=== PATIENT | female | born 1995 | race Caucasian/White ===

== ENCOUNTER → 2018-08-24 15:02 | Outpatient (CLI) | payer BC, SELFPAY ==
[2018-08-24 17:31] LABS: Chlamydia Trachomatis by PCR Negative (Negative); Neisserai gonorrhoeae by PCR Negative (Negative); Probe Check PASS; Sample Adequacy Control PASS; Specimen Processing Control PASS
[2018-08-27 13:20] LABS: HPV Reflexed? NOT INDICATED
== END ==
PROVIDERS: Visit Provider Obstetrics & Gynecology
DX: Z11.3 Encounter for screening for infections with a predominantly sexual mode of transmission (principal); Z12.4 Encounter for screening for malignant neoplasm of cervix
CPT/HCPCS: 87491; 87591; 88175; G0145

== ENCOUNTER 2018-09-17 18:02 | Emergency (ER) | payer BC, SELFPAY ==
[2018-09-17 18:04] VITALS: BP 135/82; PULSE 106; RESP 18; TEMP 36.3; O2SAT 98; BMI 23.2
--- NOTE | 2018-09-17 18:24 | ED.VISSUMM ---
- ER Visit Summary Date of Service: 09/17/18 Chief Complaint: Intermittent left lower quadrant abdominal pain with diarrhea History of Present Illness: The patient is a 22 F no see past medical history. Patient states the last 4 months she has had intermittent episodes of diarrhea and some crampy left lower quadrant abdominal pain. She denies melena. She denies fever. She has never had any abdominal or pelvic surgeries. Last menstrual period was 3 weeks ago. She is having no vaginal bleeding or discharge. No dysuria. She saw her BOTANY LABORATORY ASSISTANT recently Dr. Maksim Sultana reportedly according to the patient her UA was negative and her pelvic exam was unremarkable. He thought this may be GI related and she has been referred to and has an appointment to see Dr. Low Ha of GI in the next 2 weeks. Patient denies any weight change. She denies any fever. She denies any trauma. Physical Examination: Very well-appearing 22-year-old female. Vital signs are stable and afebrile. HEENT exam unremarkable. Neck nontender. Lungs clear to auscultation bilaterally. Heart regular rhythm no murmur. Abdomen is soft. Nondistended. Normal bowel sounds and is whatsoever. Where she points the pain is in her low left lower quadrant. She has no hernia or mass. There is no right lower quadrant pain whatsoever. No right upper quadrant pain whatsoever. No splenomegaly or hepatomegaly. No signs of bowel obstruction. And soft. Abdominal exam is very benign. She is moving all 4 extremities. Neurovascularly intact. Skin unremarkable. Back nontender. Neurologic exam normal. Test Results: I discussed with the patient clinically this sounds like this may be irritable bowel with crampy left lower quadrant pain intermittently with diarrhea. She does not need a CAT scan at this time. There is no surgical abdomen. Her OB did not think it was ovarian cyst and the pain is intermittent and not constant. Her last menstrual period was 3 weeks ago and she is having no urinary symptoms. Patient was offered but deferred any testing at this time and I do not honestly think she needs testing at this time. Emergency Department Course and Treatment: Bentyl for pain and cramping. Imodium for diarrhea. Follow-up with her GI doctor Dr. Low Ha. Treatment Plan: Discharge Disposition: Discharge Impression: Intermittent left lower quadrant abdominal pain w/ diarrhea Irritable bowel This note was generated with Dragon dictation software. It may contain incorrect words, spelling, and punctuation that were not noted in review of the chart prior to signing ED Disposition - Plan for ED Patient: Chief Complaint: Abd Pain Referrals: Care Physician,No Primary [Primary Care Provider] -
--- NOTE | 2018-09-17 18:29 | ED.DCSUM_ITS ---
- ER Visit Summary Date of Service: 09/17/18 Chief Complaint: Intermittent left lower quadrant abdominal pain with diarrhea History of Present Illness: The patient is a 22 F no see past medical history. Patient states the last 4 months she has had intermittent episodes of diarrhea and some crampy left lower quadrant abdominal pain. She denies melena. She denies fever. She has never had any abdominal or pelvic surgeries. Last menstrual period was 3 weeks ago. She is having no vaginal bleeding or di scharge. No dysuria. She saw her CARAMEL CUTTER HELPER recently Dr. Maksim Sultana reportedly according to the patient her UA was negative and her pelvic exam was unremarkable. He thought this may be GI related and she has been referred to and has an appointment to see Dr. Low Ha of GI in the next 2 weeks. Patient denies any weight change. She denies any fever. She denies any trauma. Physical Examination: Very well-appearing 22-year-old female. Vital signs are stable and afebrile. HEENT exam unremarkable. Neck nontender. Lungs clear to auscultation bilaterally. Heart regular rhythm no murmur. Abdomen is soft. Nondistended. Normal bowel sounds and is whatsoever. Where she points the pain is in her low left lower quadrant. She has no hernia or mass. There is no r ight lower quadrant pain whatsoever. No right upper quadrant pain whatsoever. No splenomegaly or hepatomegaly. No signs of bowel obstruction. And soft. Abdominal exam is very benign. She is moving all 4 extremities. Neurovascularly intact. Skin unremarkable. Back nontender. Neurologic exam normal. Test Results: I discussed with the patient clinically this sounds like this may be irritable bowel with crampy left lower quadrant pain intermittently with diarrhea. She does not need a CAT scan at this time. There is no surgical abdomen. Her OB did not think it was ovarian cyst and the pain is intermittent and not constant. Her last menstrual period was 3 weeks ago and she is having no urinary symptoms. Patient was offered but deferred any testing at this time and I do not honestly think she needs testing at this time. Emergency Department Course and Treatment: Bentyl for pain and cramping. Imodium for diarrhea. Follow-up with her GI doctor Dr. Low Ha. Treatment Plan: Discharge Disposition: Discharge Impression: Intermittent left lower quadrant abdominal pain w/ diarrhea Irritable bowel This note was generated with Daio dictation software. It may contain incorrect words, spelling, and punctuation that were not noted in review of the chart prior to signing ED Disposition - Plan for ED Patient: Chief Complaint: Abd Pain Referrals: Care Physician,No Primary [Primary Care Provider] -
--- NOTE | 2018-09-17 18:29 | ED.DEP ---
ED Disposition - Plan for ED Patient: Disposition: Home or Assisted Living Chief Complaint: Abd Pain Instructions: ED Abdominal Pain Unkn Cause, ED IBS Prescriptions: Loperamide [Imodium] 2 mg PO Q2H PRN PRN #14 cap PRN Reason: Diarrhea Dicyclomine HCl [Bentyl] 10 mg PO TID PRN PRN #20 cap PRN Reason: Pain Referrals: Care Physician,No Primary [Primary Care Provider] - Additional Instructions: Plenty of fluids and rest. Plenty of fiber. Imodium as needed for diarrhea. Bentyl as needed for abdominal cramping.
[2018-09-17 18:41] VITALS: RESP 18
--- OUTSIDE RECORDS SUMMARY | 2018-11-12 23:35 | XMS RPT_ITS ---
:1995 Author Organization [facility] Care Team Providers Name Role Phone Low Ha Attending Unavailable Low Ha Referring Unavailable Primay Care Physicia, No Primary Care Unavailable Low Ha Attending Unavailable Low Ha Referring Unavailable Primay Care Physicia, No Primary Care Unavailable Maksim Sultana Attending Unavailable Hussain Pérez Attending Unavailable Primay Care Physicia, No Primary Care Unavailable PROBLEMS PROBLEMS DATE TYPE CONDITION / CODE ATTENDING STATUS SOURCE 08/26/2018 Unknown Z11.3 - Encounter Maksim Sultana Active [place] for screening for Community infections with a Hospital predominantly Repository sexual mode of transmission / Z11.3(ICD-10) PROCEDURES PROCEDURES No Procedure Records FoundRESULTS RESULTS SMALL BOWEL SERIES Observed: 10/05/2018 Status: F Source: [place]IR[place] ONLY 8:38 AM [facility] REPOSITORY [facility] Imaging Services [address] [place] [address] Small Bowel Series Only MR#: [id number] Acct: [id number] Name: MARTHA VALDIVIA Rep #: [id number] : 1995 F 22 From: Taye Blanchard MD PCP: Care Physician, No Primary Status: REG CLI Study: Small Bowel Series Only Date of Exam: 10/05/18 Exam# [id number] Ordering Dr: Low Ha MD PROCEDURE: SMALL BOWEL SERIES DATE OF EXAMINATION: October 05, 2018.. INDICATION: Female, 22 years old. Abdominal pain and diarrhea. PHYSICIAN: Taye Blanchard M.D. TECHNIQUE: Radiographic and fluoroscopic images were taken of the small intestine following the ingestion of barium. COMPARISON: None. FINDINGS: A preliminary supine KUB was obtained. There is an unremarkable bowel gas pattern. Fecal material is present throughout the colon. The osseous structures are normal. The patient orally ingested approximately 12 ounces of thin barium Normal visualized fundus, body, and antrum of the stomach. Normal duodenal bulb, C-loop, and proximal jejunum. Normal visualized mucosal folds of the jejunum and ileum. There are no demonstrated dilatations, strictures, or masses of the small intestine. There is no mass displacement of the loops of small intestine. There is a normal motor pattern with barium reaching the colon within approximately 15 minutes. Spot films under fluoroscopic observation demonstrated a normal terminal ileum and ileocecal valve. RAD/Small Bowel Series Only IMPRESSION: Normal small bowel series. Electronically Signed: Taye Blanchard MD at 16:01 EST Tel [phone], Service support , CC: No Primary Care Physician; Low Ha Specification Consultant: Signed CBC-COMPLETE BLOOD CNT Collected: 09/30/2018 Status: F Source: [place] NO DIFF 3:57 PM [facility] REPOSITORY TYPE CODE TESTS RESULT OUT OF RANGE REFERENCE UNITS LAB L100.1000 4.4-11.0 K/mm3 Normal WBC 6.0 LAB L100.1200 4.2-5.4 M/mm3 Normal RBC 4.37 LAB L100.1300 12.0-15.0 g/dl Normal HGB 13.6 LAB L100.1400 37-47 % Normal HCT 40.0 LAB L100.1500 81-99 fL Normal MCV 91.5 LAB L100.1600 27.0-32.0 pg Normal MCH 31.1 LAB L100.1700 32-36 g/gl Normal MCHC 34.0 LAB L100.1810 11.6-14.6 % Normal RDW CV 12.2 LAB L100.1820 35.1-43.9 fl Normal RDW SD 40.0 LAB L100.1900 150-450 K/mm3 Normal PLT 223 LAB L100.2000 6.2-12.0 fl Normal MPV 10.8 Performed By: #### L100.0500, L101.9900 #### [facility] [address] [place], [place], [id number] ERYTHROCYTE SED RATE Collected: 09/30/2018 Status: F Source: VIRGIL 3:57 PM [facility] REPOSITORY TYPE CODE TESTS RESULT OUT OF RANGE REFERENCE UNITS LAB L102.0000 0-20 mm/hr Normal SED RATE 1 Performed By: #### L100.0500, L101.9900 #### [facility] [address] [place], [place], [id number] CRP Collected: 09/30/2018 Status: F Source: VIR[place]IL 3:57 PM [facility] REPOSITORY TYPE CODE TESTS RESULT OUT OF RANGE REFERENCE UNITS LAB L501.6710 0.0-3.0 mg/L Normal < 2.90 C-REACTIVE PROT Result Comment: C-Reactive Protein (CRP) provides useful information for the diagnosis, therapy and monitoring of inflammatory processes and associated diseases. For the evaluation of Relative Risk for Cardiovascular Disease, a High Sensitivity CRP (HSCRP) should be ordered. Performed By: #### L501.6710 #### [facility] [address] [place], [address] CELIAC DISEASE Collected: 09/30/2018 Status: F Source: [place] PROFILE 3:57 PM [facility] REPOSITORY TYPE CODE TESTS RESULT OUT OF RANGE REFERENCE UNITS LAB L3200.1400 87-352 mg/dL Normal IMMUNO A 250 Result Comment: Performed at: - [facility] [id number] Top Precipitator Operator Helper: Low Donato PhD, Phone: [phone] LAB L3911.6097 0-3 U/mL Normal tTG IGA <2 Result Comment: Negative 0 - 3 Weak Positive 4 - 10 Positive >10 Tissue Transglutaminase (tTG) has been identified as the endomysial antigen. Studies have demonstr- ated that endomysial IgA antibodies have over 99% specificity for gluten sensitive enteropathy. LAB L3410.2975 Negative Normal ENDOMYSIAL IGA Negative Performed By: #### L3410.2400 #### [facility] (refer to report for specific site) refer to report for address and phone number EMERGENCY DEPARTMENT Observed: 09/17/2018 Status: F Source: [place] SUMMARY 11:54 PM [facility] REPOSITORY [facility] Medical Records Department [address] [place] [address] Emergency Department Summary 09/17/18 1824 MR#: [id number] Acct: [id number] Name: MARTHA VALDIVIA Rep #: [id number] : 1995 22 From: Hussain Pérez MD PCP: Care Physician, No Primary Status: DEP ER - ER Visit Summary Date of Service: 09/17/18 Chief Complaint: Intermittent left lower quadrant abdominal pain with diarrhea History of Present Illness: The patient is a 22 F no see past medical history. Patient states the last 4 months she has had intermittent episodes of diarrhea and some crampy left lower quadrant abdominal pain. She denies melena. She denies fever. She has never had any abdominal or pelvic surgeries. Last menstrual period was 3 weeks ago. She is having no vaginal bleeding or discharge. No dysuria. She saw her DIRECTOR RELIGIOUS EDUCATION recently Dr. Maksim Sultana reportedly according to the patient her UA was negative and her pelvic exam was unremarkable. He thought this may be GI related and she has been referred to and has an appointment to see Dr. Low Ha of GI in the next 2 weeks. Patient denies any weight change. She denies any fever. She denies any trauma. Physical Examination: Very well-appearing 22-year-old female. Vital signs are stable and afebrile. HEENT exam unremarkable. Neck nontender. Lungs clear to auscultation bilaterally. Heart regular rhythm no murmur. Abdomen is soft. Nondistended. Normal bowel sounds and is whatsoever. Where she points the pain is in her low left lower quadrant. She has no hernia or mass. There is no right lower quadrant pain whatsoever. No right upper quadrant pain whatsoever. No splenomegaly or hepatomegaly. No signs of bowel obstruction. And soft. Abdominal exam is very benign. She is moving all 4 extremities. Neurovascularly intact. Skin unremarkable. Back nontender. Neurologic exam normal. Test Results: I discussed with the patient clinically this sounds like this may be irritable bowel with crampy left lower quadrant pain intermittently with diarrhea. She does not need a CAT scan at this time. There is no surgical abdomen. Her OB did not think it was ovarian cyst and the pain is intermittent and not constant. Her last menstrual period was 3 weeks ago and she is having no urinary symptoms. Patient was offered but deferred any testing at this time and I do not honestly think she needs testing at this time. Emergency Department Course and Treatment: Bentyl for pain and cramping. Imodium for diarrhea. Follow-up with her GI doctor Dr. Low Ha. Treatment Plan: Discharge Disposition: Discharge Impression: Intermittent left lower quadrant abdominal pain w/ diarrhea Irritable bowel This note was generated with Equipboard dictation software. It may contain incorrect words, spelling, and punctuation that were not noted in review of the chart prior to signing ED Disposition - Plan for ED Patient: Chief Complaint: Abd Pain Referrals: Care Physician,No Primary [Primary Care Provider] - What to do if you have Problems For any increased pain, shortness of breath, bleeding, nausea or vomiting, chest pain, or any unexpected problems, contact your Primary Care Provider. Call [facility] ([phone]) or report to the closest Emergency Room. Call 911 if necessary. 09/17/182353 <Electronically signed by Hussain Pérez MD> Date Hussain Pérez MD Cosigner Signature (If Indicated): Date CC: No Primary Care Physician DISCHARGE INSTRUCTION Observed: 09/17/2018 Status: F Source: VIR[place]IL 11:54 PM [facility] REPOSITORY [facility] Medical Records Department [address] [place] [address] Discharge Instruction 09/17/18 1829 MR#: [id number] Acct: [id number] Name: MARTHA VALDIVIA Rep #: [id number] : 1995 22 From: Hussain Pérez MD PCP: Care Physician, No Primary Status: DEP ER ED Disposition - Plan for ED Patient: Disposition: Home or Assisted Living Chief Complaint: Abd Pain Instructions: ED Abdominal Pain Unkn Cause, ED IBS Prescriptions: Loperamide [Imodium] 2 mg PO Q2H PRN PRN #14 cap PRN Reason: Diarrhea Dicyclomine HCl [Bentyl] 10 mg PO TID PRN PRN #20 cap PRN Reason: Pain Referrals: Care Physician,No Primary [Primary Care Provider] - Additional Instructions: Plenty of fluids and rest. Plenty of fiber. Imodium as needed for diarrhea. Bentyl as needed for abdominal cramping. What to do if you have Problems For any increased pain, shortness of breath, bleeding, nausea or vomiting, chest pain, or any unexpected problems, contact your Primary Care Provider. Call [facility] ([phone]) or report to the closest Emergency Room. Call 911 if necessary. 09/17/182353 <Electronically signed by Hussain Pérez MD> Date Hussain Banks Signature (If Indicated): Date CC: No Primary Care Physician CT/NG [facility] BY PCR Collected: 08/24/2018 Status: F Source: [place] 11:30 AM [facility] REPOSITORY TYPE CODE TESTS RESULT OUT OF RANGE REFERENCE UNITS LAB L8200.2100 Negative Normal Chlam Negative Trac PCR LAB L8200.2200 Negative Normal NG by Negative PCR Performed By: #### L8200.2000 #### [facility] [address] [place], [address] PAP I-G W/RFX HRHPV Collected: 08/24/2018 Status: F Source: [place] 11:30 AM [facility] REPOSITORY Order Comment: CYTOLOGY INFORMATION: - CLINICAL INFORMATION: - DATE LMP/MENOPAUSE: 08/08/18 LMP - COLLECTION VIAL: Thin Prep Vial - WEB ANALYTICS DEVELOPER SOURCE: CERVICAL/ENDOCERVICAL - COLLECTION TECHNIQUE: BRUSH/SPATULA Specimen Comment: [id number] Specimen Comment: Source.............Cervix;Endocervix Specimen Comment: LMP / Prev Treat...[id number] Specimen Comment: No. of containers..01 ThinPrep Vial TYPE CODE TESTS RESULT OUT OF RANGE REFERENCE UNITS LAB L7400.0800 . Normal DIAGN Comment Result Comment: NEGATIVE FOR INTRAEPITHELIAL LESION AND MALIGNANCY. LAB L7400.0900 . Normal ADEQ Comment Result Comment: Satisfactory for evaluation. No endocervical component is identified. LAB L7400.1400 . Normal PERFORM Comment Result Comment: [employer] Hybrid Powertrain Development Engineer (ASCP) LAB L7400.2575 . Normal TEST METHOD Comment Result Comment: This liquid based ThinPrep(R) pap test was screened with the use of an image guided system. LAB L7400.2600 . Normal . COMM LAB L7400.2700 . Normal PAPSMR Comment Result Comment: The Pap smear is a screening test designed to aid in the detection of premalignant and malignant conditions of the uterine cervix. It is not a diagnostic procedure and should not be used as the sole means of detecting cervical cancer. Both false-positive and false-negative reports do occur. LAB L7400.2800 . Normal HPV RFLX Comment Result Comment: The HPV DNA reflex criteria were not met with this specimen result therefore, no HPV testing was performed. Performed at: - [facility] [address] [id number] Top Precipitator Operator Helper: Nubia Haque MD, Phone: [phone] Performed By: #### L7400.0350 #### [facility] (refer to report for specific site) refer to report for address and phone number ALLERGIES ALLERGIES DATE TYPE / CODE NAME / CODE REACTION SEVERITY SOURCE 09/17/2018 Drug No Known Unknown [facility] Allergy/4160 Allergies/F00 [facility] [address](SNOMED [id number](RXNOR Repository CT) M) ENCOUNTERS ENCOUNTERS ADMIT/DISCHARGE ACCOUNT ADMITTING ENCOUNTER LOCATION SOURCE NUMBER CLASS 10/05/2018 [id number] Ambulatory Blanchard Blanchard 8 [facility] ing:RAD Repository 09/30/2018 [id number] Ambulatory Blanchard Blanchard 4 [facility] ing:MTLAB Repository 09/17/2018/ [id number] Emergency Virgil Virgil 8 5 [facility] ing:ED Repository 08/24/2018 [id number] Ambulatory Blanchard [place]gil 6 [facility] ing:LABSPEC Repository PAYERS PAYERS ENCOUNTER GUARANTOR PAYER SUBSCRIBER SOURCE 10/05/2018 MARTHA Avery Primary MARTHA K Blanchard [id number] Insurance:ANTHEMPolic CARTERDOB: [facility] Number: [id number] Hospital [id number], [id number] [place]ository [place] [address]Vqc: Date:5355-47-15[address], [place] () [address]: 10/05/2018 Secondary NOT GIVENUNK [place] Insurance:SELF PAY [facility] Number: Effective Repository Date:2018-09-30 09/30/2018 MARTHA Avery Primary MARTHA K Blanchard [id number] Insurance:ANTHEMPolic CARTERDOB: Community ANDREW y [facility]: [id number], [id number] [place]ository [place] [address]Wfh: Date:5289-80-35[address] () [address]AJ: 09/30/2018 Secondary NOT GIVENUNK [place] Insurance:SELF PAY [facility] Number: Effective Repository Date:2018-09-30 09/17/2018 [facility] MARTHA Avery Blanchard [id number] Insurance:ANTHEMPolic CARTERDOB: Community ANDREW y Number: [id number] [address], [id number] [place]ository [place] [address]Kvt: Date:2458-85-21[address]KRKDHCHSH[address]SH[address] () [address]: 09/17/2018 Secondary NOT GIVENUNK Blanchard Insurance:SELF PAY [facility] Number: Effective Repository Date:2018-09-17 08/24/2018 [facility] MARTHA Blanchard [id number] Insurance:ANTHEMPolic CARTERDOB: Community ANDREW y Number: [id number], [id number] [place]ository [place] [address]Nrr: Date:9403-70-40ZF [address]HIZWCQKSHAHAB [place]SH[address] () [address]: 08/24/2018 Secondary NOT GIVENUNK [place] Insurance:SELF PAY [facility] Number: Effective Repository Date:2018-08-24
== END 2018-09-17 18:49 | disposition home or self-care (01) ==
LOC: ED 18:43
PROVIDERS: Emergency Provider Emergency Medicine
DX: K58.0 Irritable bowel syndrome with diarrhea (principal); R10.32 Left lower quadrant pain; Z72.0 Tobacco use
CPT/HCPCS: 99282

== ENCOUNTER → 2018-09-30 15:40 | Outpatient (CLI) | payer BC, SELFPAY ==
[2018-09-17 18:04] VITALS: BMI 23.2
[2018-09-30 17:38] LABS: Hemoglobin 13.6 g/dl (12.0-15.0); Mean Corpuscular Hgb 31.1 pg (27.0-32.0); Mean Corpuscular Volume 91.5 fL (81-99); Mean Platelet Vol. 10.8 fl (6.2-12.0); Platelet Count 223 K/mm3 (150-450); RBC Distribution Width CV 12.2 % (11.6-14.6); Red Blood Count 4.37 M/mm3 (4.2-5.4)
[2018-09-30 17:39] LABS: Scan Indicated on CBC? Y/N NO
[2018-09-30 17:55] LABS: CRP < 2.90 mg/L (0.0-3.0)
[2018-09-30 18:01] LABS: Erythrocyte Sedimentation Rate 1 mm/hr (0-20)
[2018-10-02 16:09] LABS: Endomysial Antibody IgA Negative (Negative)
[2018-10-02 16:22] LABS: Immunoglobulin A 250 mg/dL (87-352); t-Transglutaminase IgA <2 U/mL (0-3)
--- OUTSIDE RECORDS SUMMARY | 2018-11-16 21:08 | XMS RPT_ITS ---
[...] Status: F Source: [place] ONLY 8:38 AM [facility] REPOSITORY [facility] Imaging Services [address] [place] [address] Small Bowel Series Only MR#: [id number] Acct: [id number] Name: MARTHA VALDIVIA Rep #: [id number] : 1995 F 22 From: Taye Blanchard MD PCP: Care Physician, No Primary Status: REG CLI Study: Small Bowel Series Only Date of Exam: 10/05/18 Exam# [id number] Ordering Dr: Low Ha MD PROCEDURE: SMALL [...] Taye Blanchard MD at 16:01 EST Tel [phone], Service support , CC: No Primary Care Physician; Low Ha Car Rental Sales Assistant: Signed CBC-COMPLETE BLOOD CNT Collected: 09/30/2018 Status: F Source: [place] NO DIFF 3:57 PM [facility] [place] TYPE CODE TESTS RESULT OUT OF [...] 10.8 Performed By: #### L100.0500, L101.9900 #### [facility] Laboratory [address] [facility]. [place], [place], [id number] ERYTHROCYTE SED RATE Collected: 09/30/2018 Status: F Source: [place] 3:57 PM [facility] [place] TYPE CODE TESTS RESULT OUT OF RANGE REFERENCE UNITS LAB L102.0000 0-20 mm/hr Normal SED RATE 1 Performed By: #### L100.0500, L101.9900 #### [facility] Laboratory [address] [place], [place], [id number] CRP Collected: 09/30/2018 Status: F Source: [place] 3:57 PM [facility] [place] TYPE CODE TESTS RESULT OUT OF RANGE REFERENCE UNITS LAB L501.6710 0.0-3.0 mg/L Normal < 2.90 C-REACTIVE PROT Result Comment: C-Reactive Protein (CRP) provides useful information for the diagnosis, therapy and monitoring of inflammatory processes and associated diseases. For the evaluation of Relative Risk for Cardiovascular Disease, a High Sensitivity CRP (HSCRP) should be ordered. Performed By: #### L501.6710 #### [facility] Laboratory [address] [place], [address] CELIAC DISEASE Collected: 09/30/2018 Status: F Source: [place] PROFILE 3:57 PM [facility] [place] TYPE CODE TESTS RESULT OUT OF RANGE REFERENCE UNITS LAB L3200.1400 87-352 mg/dL Normal IMMUNO A 250 Result Comment: Performed at: - [facility] [id number] Channel Program Manager: Low Donato PhD, Phone: [phone] LAB L3972.0628 0-3 U/mL Normal tTG IGA <2 Result [...] EMERGENCY DEPARTMENT Observed: 09/17/2018 Status: F Source: [place] SUMMARY 11:54 PM [facility] [place] [facility] Medical Records Department [address] [place] [address] Emergency Department Summary 09/17/18 1824 MR#: [id number] Acct: [id number] Name: MARTHA VALDIVIA Rep #: [id number] : 1995 22 From: Hussain Pérez MD [...] or discharge. No dysuria. She saw her VISCOSITY TESTER recently Dr. Maksim Sultana reportedly according to [...] Irritable bowel This note was generated with [employer] dictation software. It may contain incorrect words, [...] your Primary Care Provider. Call [facility] ([phone]) or report to the closest Emergency Room. Call 911 if necessary. 09/17/182353 <Electronically signed by Hussain Pérez MD> Date Hussain Pérez MD Cosigner Signature (If Indicated): Date CC: No Primary Care Physician DISCHARGE INSTRUCTION Observed: 09/17/2018 Status: F Source: [place] 11:54 PM [facility] [place] [facility] Medical Records Department [address] [place] [address] Discharge Instruction 09/17/18 1829 MR#: [id number] Acct: [id number] Name: MARTHA VALDIVIA Rep #: [id number] : 1995 22 From: Hussain Pérez MD [...] your Primary Care Provider. Call [facility] ([phone]) or report to the closest Emergency Room. Call 911 if necessary. 09/17/182353 <Electronically signed by Hussain Pérez MD> Date Hussain Banks Signature (If Indicated): Date CC: No Primary Care Physician CT/NG [facility] BY PCR Collected: 08/24/2018 Status: F Source: [place] 11:30 AM [facility] [place] TYPE CODE TESTS RESULT OUT OF RANGE REFERENCE UNITS LAB L8200.2100 Negative Normal Chlam Negative Trac PCR LAB L8200.2200 Negative Normal NG by Negative PCR Performed By: #### L8200.2000 #### [facility] Laboratory [address] [place], [address] PAP I-G W/RFX HRHPV Collected: 08/24/2018 Status: F Source: [place] 11:30 AM [facility] [place] Order Comment: CYTOLOGY INFORMATION: - CLINICAL INFORMATION: - DATE LMP/MENOPAUSE: 08/08/18 LMP - COLLECTION VIAL: Thin Prep Vial - BELT LOOP MAKER SOURCE: CERVICAL/ENDOCERVICAL - COLLECTION TECHNIQUE: BRUSH/SPATULA Specimen Comment: [id number] Specimen Comment: Source.............Cervix;Endocervix Specimen Comment: LMP / Prev Treat...[id number] Specimen Comment: No. of containers..01 ThinPrep Vial TYPE CODE TESTS RESULT OUT OF RANGE REFERENCE UNITS LAB L7400.0800 . Normal DIAGN Comment Result Comment: NEGATIVE FOR INTRAEPITHELIAL LESION AND MALIGNANCY. LAB L7400.0900 . Normal ADEQ Comment Result Comment: Satisfactory for evaluation. No endocervical component is identified. LAB L7400.1400 . Normal PERFORM Comment Result Comment: [employer] Business Development Professional (ASCP) LAB L7400.2575 . Normal TEST METHOD [...] testing was performed. Performed at: - [facility] [address] [id number] Channel Program Manager: Nubia Haque MD, Phone: [phone] Performed By: #### L7400.0350 #### [facility] (refer to report for specific site) refer to report for address and phone number ALLERGIES ALLERGIES DATE TYPE / CODE NAME / CODE REACTION SEVERITY SOURCE 09/17/2018 Drug No Known Unknown [place] Allergy/4160 Allergies/F00 [facility] [address](SNOMED [id number](RXNOR Repository CT) M) ENCOUNTERS ENCOUNTERS ADMIT/DISCHARGE ACCOUNT ADMITTING ENCOUNTER LOCATION SOURCE NUMBER CLASS 10/05/2018 [id number] Ambulatory [place] 8 [facility] ing:RAD Repository 09/30/2018 [id number] Ambulatory [place] 4 [facility] ing:MTLAB Repository 09/17/2018/ [id number] [place] 5 [facility] ing:ED Repository 08/24/2018 [id number] Ambulatory [place] 6 [facility] ing:LABSPEC Repository PAYERS PAYERS ENCOUNTER GUARANTOR PAYER SUBSCRIBER SOURCE 10/05/2018 MARTHA Avery Primary MARTHA K [place] [id number] Insurance:ANTHEMPolic CARTERDOB: [facility] Number: [id number] [id number], [id number] [place]ository [place] [address]Sts: Date:8391-36-53[address]PUJAFBL, [place] () [address]: 10/05/2018 Secondary NOT GIVENUNK [place] Insurance:SELF PAY [facility] Number: Effective Repository Date:2018-09-30 09/30/2018 MARTHA Avery Primary MARTHA K [place] [id number] Insurance:ANTHEMPolic CARTERDOB: Community ANDREW y Number: [id number], [id number] [place]ository [place] [address]Ltu: Date:8901-24-79[address] () [address]UI: 09/30/2018 Secondary NOT GIVENUNK [place] Insurance:SELF PAY [facility] Number: Effective Repository Date:2018-09-30 09/17/2018 [facility] MARTHA Avery [place] [id number] Insurance:ANTHEMPolic CARTERDOB: Community ANDREW y Number: [id number] [address], [id number] Repository [place] [address]Isk: Date:3469-29-55MS [address]IVKCJNBS[address]HAB [place] () [address]JR: 09/17/2018 Secondary NOT GIVENUNK [place] Insurance:SELF PAY [facility] Number: Effective Repository Date:2018-09-17 08/24/2018 [facility] MARTHA [place] [id number] Insurance:ANTHEMPolic CARTERDOB: Community ANDREW y Number: [id number], [id number] Repository [place] [address]Eoj: Date:7774-13-21ZT [address]GRXEMRASHAHAB [place] () [address]KU: 08/24/2018 Secondary NOT GIVENUNK [place] Insurance:SELF PAY [facility] Number: Effective Repository Date:2018-08-24
== END ==
LOC: MTLAB 15:42
PROVIDERS: Referring Provider Internal Medicine Gastroenterology; Visit Provider Internal Medicine Gastroenterology
DX: R10.9 Unspecified abdominal pain (principal); R19.7 Diarrhea, unspecified
CPT/HCPCS: 36415; 82784; 83516; 85027; 85652; 86140; 86255

== ENCOUNTER → 2018-10-05 08:34 | Outpatient (CLI) | payer BC, SELFPAY ==
[2018-09-17 18:04] VITALS: BMI 23.2
--- NOTE | 2018-10-05 09:00 | RAD_ITS ---
PROCEDURE: SMALL BOWEL SERIES DATE OF EXAMINATION: October 05, 2018.. INDICATION: Female, 22 years old. Abdominal pain and diarrhea. PHYSICIAN: Taye Blanchard M.D. TECHNIQUE: Radiographic and fluoroscopic images were taken of the small intestine following the ingestion of barium. COMPARISON: None. FINDINGS: A preliminary supine KUB was obtained. There is an unremarkable bowel gas pattern. Fecal material is present throughout the colon. The osseous structures are normal. The patient orally ingested approximately 12 ounces of thin barium Normal visualized fundus, body, and antrum of the stomach. Normal duodenal bulb, C-loop, and proximal jejunum. Normal visualized mucosal folds of the jejunum and ileum. There are no demonstrated dilatations, strictures, or masses of the small intestine. There is no mass displacement of the loops of small intestine. There is a normal motor pattern with barium reaching the colon within approximately 15 minutes. Spot films under fluoroscopic observation demonstrated a normal terminal ileum and ileocecal valve. RAD/Small Bowel Series Only IMPRESSION: Normal small bowel series. Electronically Signed: Taye Blanchard MD at 16:01 EST Tel [phone], Service support ,
--- OUTSIDE RECORDS SUMMARY | 2019-01-06 19:48 | XMS RPT_ITS ---
[...] Status: F Source: VIRG[place] ONLY 8:38 AM [facility] REPOSITORY [facility] Imaging Services [address] [place] [address] Small Bowel Series Only MR#: [id number] Acct: [id number] Name: MARTHA VALDIVIA Rep #: [id number] : 1995 F 22 From: Taye Blanchard MD PCP: Care Physician, No Primary Status: REG CLI Study: Small Bowel Series Only Date of Exam: 10/05/18 Exam# [id number] Ordering Dr: Low Ha MD PROCEDURE: SMALL [...] Taye Blanchard MD at 16:01 EST Tel [phone], Service support , CC: No Primary Care Physician; Low Ha Cement Finishing Supervisor: Signed CBC-COMPLETE BLOOD CNT Collected: 09/30/2018 Status: F Source: [place] NO DIFF 3:57 PM [facility] REPOSITORY TYPE CODE TESTS RESULT OUT OF [...] 10.8 Performed By: #### L100.0500, L101.9900 #### [facility] Laboratory [address] [facility]. [place], [place], [id number] ERYTHROCYTE SED RATE Collected: 09/30/2018 Status: F Source: [place] 3:57 PM [facility] REPOSITORY TYPE CODE TESTS RESULT OUT OF RANGE REFERENCE UNITS LAB L102.0000 0-20 mm/hr Normal SED RATE 1 Performed By: #### L100.0500, L101.9900 #### [facility] [address] [place], [place], [address] CRP Collected: 09/30/2018 Status: F Source: [place] 3:57 PM [facility] REPOSITORY TYPE CODE TESTS RESULT OUT OF RANGE REFERENCE UNITS LAB L501.6710 0.0-3.0 mg/L Normal < 2.90 C-REACTIVE PROT Result Comment: C-Reactive Protein (CRP) provides useful information for the diagnosis, therapy and monitoring of inflammatory processes and associated diseases. For the evaluation of Relative Risk for Cardiovascular Disease, a High Sensitivity CRP (HSCRP) should be ordered. Performed By: #### L501.6710 #### [facility] Laboratory [address] [place], [address] CELIAC DISEASE Collected: 09/30/2018 Status: F Source: [place] PROFILE 3:57 PM [facility] REPOSITORY TYPE CODE TESTS RESULT OUT OF RANGE REFERENCE UNITS LAB L3200.1400 87-352 mg/dL Normal IMMUNO A 250 Result Comment: Performed at: - [facility] [id number] Toddler Lead Teacher: Low Donato PhD, Phone: [phone] LAB L3945.3630 0-3 U/mL Normal tTG IGA <2 Result [...] EMERGENCY DEPARTMENT Observed: 09/17/2018 Status: F Source: [place] SUMMARY 11:54 PM [facility] REPOSITORY [facility] Medical Records Department [address] [place] [address] Emergency Department Summary 09/17/18 1824 MR#: [id number] Acct: [id number] Name: MARTHA VALDIVIA Rep #: [id number] : 1995 22 From: Hussain Pérez MD [...] or discharge. No dysuria. She saw her TOOL SHARPENER recently Dr. Maksim Sultana reportedly according to [...] Irritable bowel This note was generated with [employer] dictation software. It may contain incorrect words, [...] your Primary Care Provider. Call [facility] ([phone]) or report to the closest Emergency Room. Call 911 if necessary. 09/17/182353 <Electronically signed by Hussain Pérez MD> Date Hussain Pérez MD Cosigner Signature (If Indicated): Date CC: No Primary Care Physician DISCHARGE INSTRUCTION Observed: 09/17/2018 Status: F Source: [place] 11:54 PM [facility] REPOSITORY [facility] Medical Records Department [address] [place] [address] Discharge Instruction 09/17/18 1829 MR#: [id number] Acct: [id number] Name: MARTHA VALDIVIA Rep #: [id number] : 1995 22 From: Hussain Pérez MD [...] your Primary Care Provider. Call [facility] ([phone]) or report to the closest Emergency Room. Call 911 if necessary. 09/17/182353 <Electronically signed by Hussain Pérez MD> Date Hussain Banks Signature (If Indicated): Date CC: No Primary Care Physician CT/NG [facility] BY PCR Collected: 08/24/2018 Status: F Source: [place] 11:30 AM [facility] REPOSITORY TYPE CODE TESTS RESULT OUT OF RANGE REFERENCE UNITS LAB L8200.2100 Negative Normal Chlam Negative Trac PCR LAB L8200.2200 Negative Normal NG by Negative PCR Performed By: #### L8200.2000 #### [facility] Laboratory [address] [place], [address] PAP I-G W/RFX HRHPV Collected: 08/24/2018 Status: F Source: [place] 11:30 AM [facility] REPOSITORY Order Comment: CYTOLOGY INFORMATION: - CLINICAL INFORMATION: - DATE LMP/MENOPAUSE: 08/08/18 LMP - COLLECTION VIAL: Thin Prep Vial - DRY CHARGE PROCESS ATTENDANT SOURCE: CERVICAL/ENDOCERVICAL - COLLECTION TECHNIQUE: BRUSH/SPATULA Specimen Comment: [id number] Specimen Comment: Source.............Cervix;Endocervix Specimen Comment: LMP / Prev Treat...[id number] Specimen Comment: No. of containers..01 ThinPrep Vial TYPE CODE TESTS RESULT OUT OF RANGE REFERENCE UNITS LAB L7400.0800 . Normal DIAGN Comment Result Comment: NEGATIVE FOR INTRAEPITHELIAL LESION AND MALIGNANCY. LAB L7400.0900 . Normal ADEQ Comment Result Comment: Satisfactory for evaluation. No endocervical component is identified. LAB L7400.1400 . Normal PERFORM Comment Result Comment: [employer] [place] Watch Commander (ASCP) LAB L7400.2575 . Normal TEST METHOD [...] testing was performed. Performed at: - [facility] [address] [id number] Toddler Lead Teacher: Nubia Haque MD, Phone: [phone] Performed By: #### L7400.0350 #### [facility] (refer to report for specific site) refer to report for address and phone number ALLERGIES ALLERGIES DATE TYPE / CODE NAME / CODE REACTION SEVERITY SOURCE 09/17/2018 Drug No Known Unknown [place] [facility] Allergy/4160 Allergies/F00 [facility] [address](SNOMED [id number](RXNOR Repository CT) M) ENCOUNTERS ENCOUNTERS ADMIT/DISCHARGE ACCOUNT ADMITTING ENCOUNTER LOCATION SOURCE NUMBER CLASS 10/05/2018 [id number] Ambulatory [place] 8 [facility] ing:RAD Repository 09/30/2018 [id number] Ambulatory [place] 4 [facility] ing:MTLAB Repository 09/17/2018/ [id number] Emergency [place] [address] [facility] ing:ED Repository 08/24/2018 [id number] Ambulatory [place] 6 [facility] ing:LABSPEC Repository PAYERS PAYERS ENCOUNTER GUARANTOR PAYER SUBSCRIBER SOURCE 10/05/2018 MARTHA Avery Primary MARTHA K [place] [id number] Insurance:ANTHEMPolic CARTERDOB: [facility] Number: [id number] Hospital [id number], [id number] [place]ository [place] [address]Ztw: Date:0196-84-46CM [address]STEGUQ, [place] () [address]: 10/05/2018 Secondary NOT GIVENUNK [place] Insurance:SELF PAY [facility] Number: Effective Repository Date:2018-09-30 09/30/2018 MARTHA Avery Primary MARTHA K [place] [id number] Insurance:ANTHEMPolic CARTERDOB: Community ANDREW y Number: [id number], [id number] Repository [place] [address]Pfi: Date:1177-52-17MQ [address] () [address]JZ: 09/30/2018 Secondary NOT GIVENUNK [place] Insurance:SELF PAY [facility] Number: Effective Repository Date:2018-09-30 09/17/2018 [facility] MARTHA Avery [place] [id number] Insurance:ANTHEMPolic CARTERDOB: Community ANDREW y Number: [id number] [address], [id number] Repository [place] [address]Zen: Date:7346-99-97RP [address]MPUPNTPSHA[address] [place] () [address]HY: 09/17/2018 Secondary NOT GIVENUNK [place] Insurance:SELF PAY [facility] Number: Effective Repository Date:2018-09-17 08/24/2018 [facility] MARTHA [place] [id number] Insurance:ANTHEMPolic CARTERDOB: Community ANDREW y Number: [id number] Indian Medical Center[address], [id number] Repository [place] [address]Nfo: Date:7045-37-80NA [address]GUNGGHZSHAHAB [place] () [address]IR: 08/24/2018 Secondary NOT GIVENUNK [place] Insurance:SELF PAY [facility] Number: Effective Repository Date:2018-08-24
== END ==
PROVIDERS: Referring Provider Internal Medicine Gastroenterology; Visit Provider Internal Medicine Gastroenterology
DX: R10.9 Unspecified abdominal pain (principal); R19.7 Diarrhea, unspecified
CPT/HCPCS: 74250

== ENCOUNTER → 2023-03-03 | Outpatient (CLI) | payer BC, SELFPAY ==
[2023-03-11 21:40] LABS: HPV Reflexed? NOT INDICATED
== END | disposition home or self-care (01) ==
LOC: LABSPEC 16:48
PROVIDERS: Visit Provider Student in an Organized Health Care Education/Training Program
DX: Z01.419 Encounter for gynecological examination (general) (routine) without abnormal findings (principal)
CPT/HCPCS: 88175; G0145

== ENCOUNTER → 2023-03-13 | Outpatient (CLI) | payer BC, SELFPAY ==
--- NOTE | 2023-03-13 09:26 | US_ITS ---
EXAM: Diagnostic bilateral breast mammogram and diagnostic bilateral breast ultrasound REASON FOR EXAM: Female, 27 years old. Complains of left breast lump in the lower breast. PERTINENT HISTORY: Non-contributory. TECHNIQUE: Digital bilateral breast sima (3D mammographic acquisition) in the CC and MLO projections. 2-D mediolateral oblique (MLO) and craniocaudad (CC) views of both breasts were obtained. CAD: Full Field Digital Mammography with Computer Added Detection was performed. Real-time paniagua scale and color sonographic images were obtained of entirety of the left breast and axilla including the clinical area of concern. COMPARISON: None. Baseline examination. FINDINGS: Mammogram findings: Breast Composition: The breasts are extremely dense, which lowers the sensitivity of mammography. There is an asymmetry in the left upper breast seen only on the MLO views. There are no suspicious masses in the right breast. No suspicious calcifications. Ultrasound was obtained for further assessment of the left breast. Ultrasound findings: The entirety of the left breast and axilla was assessed with ultrasound. There is a 1.3 x 0.5 x 1.8 cm hypoechoic lesion at the 5:00 position, approximately 6 cm posterior to the nipple. The lesion demonstrates smooth margins and is wider than tall with no posterior enhancement, posterior shadowing, or significant internal vascularity. There is normal dense fibroglandular breast tissue in the remainder of the breast including the upper breast. US/Breast Complete Unilateral IMPRESSION: Asymmetry in the left upper breast on the mammogram was assessed with ultrasound which demonstrated normal dense fibroglandular breast tissue.. No mammographic evidence for malignancy in the right breast. 1.3 x 0.5 x 1.8 cm likely benign fibroadenoma at the 5:00 position in the left breast is seen on ultrasound. There is normal dense fibroglandular breast tissue in the remainder of the breast on ultrasound. ASSESSMENT CATEGORY: BIRADS Category 3: Probably Benign - Short-Interval Follow-up Suggested. A letter regarding these results will be sent to the patient by the facility within 30 days. Recommendation: 6 month followup with unilateral left breast mammogram and ultrasound is recommended. Approximately 10% of breast cancers are not detected by mammography. A normal mammogram should not delay biopsy of a clinically suspicious abnormality. Electronically Signed: Ivan Rao DO at 13:13 EDT ,
== END | disposition home or self-care (01) ==
PROVIDERS: Referring Provider Nurse Practitioner Women's Health; Visit Provider Nurse Practitioner Women's Health
DX: N63.20 Unspecified lump in the left breast, unspecified quadrant (principal)
CPT/HCPCS: 76641; 77062; 77066; G0279

== ENCOUNTER 2024-04-14 11:10 | Outpatient (CLI) | payer BC, SELFPAY ==
[2024-04-14 11:29] VITALS: BP 122/76; PULSE 101; RESP 16; TEMP 36.4
[2024-04-14 11:30] VITALS: BMI 30.7
--- NOTE | 2024-04-15 08:04 | OB.TRI.NOTE ---
HPI - General General Date of Admission: 04/14/24 Date of Service: 04/14/24 Chief Complaint: Fall in HPI Narrative MARTHA DEL VALLE, is a 28 F who presents from work after a fall. Did not hit abdomen. No bleeding. Rh +. Good movement. Did injury wrist and shoulder. Will be evaluated in ED after monitoring. 4 hours monitoring. Reactive Cat I tracing. No decelerations Maternal Data Information Final ELENA: 04/15/24 Gestational age: 31+4 PFSH PFSH Home Medications ?Medication ?Instructions ?Recorded ?Last Taken ?Type aspirin 81 mg tablet,delayed 81 mg PO DAILY 04/14/24 04/13/24 21:00 History release ([place] Aspirin) 81 mg vits no.130-ferrous fum 1 tab PO DAILY 04/14/24 04/13/24 21:00 History 27 mg iron-folic acid 800 mcg 1 TAB tablet ( Vitamin) Allergy/AdvReac Type Severity Reaction Status Date / Time No Known Allergies Allergy Verified 04/14/24 15:55 Family History Grandmother Breast cancer Social History Smoking Status: Former smoker alcohol intake: never substance use type: does not use NST FHR Rate Baby A Baseline: 145 Variability:: Moderate Accelerations:: 15 x 15 Decelerations:: None NST Reactive:: Yes FHR Category:: Category I Uterine Activity:: irregular Assessment & Plan (1) 31 weeks gestation of : (2) Trauma during : PLAN: ED evaluation after monitoring PLAN: Plan Labor precautions
== END 2024-04-14 15:53 | disposition home or self-care (01) ==
LOC: WPOUT 11:15 → WP 11:16
PROVIDERS: Visit Provider Obstetrics & Gynecology
DX: O9A.213 Injury, poisoning and certain other consequences of external causes complicating pregnancy, third trimester (principal); Z87.891 Personal history of nicotine dependence; S60.919A Unspecified superficial injury of unspecified wrist, initial encounter; W19.XXXA Unspecified fall, initial encounter; Y92.89 Other specified places as the place of occurrence of the external cause; Z3A.31 31 weeks gestation of pregnancy; O99.891 Other specified diseases and conditions complicating pregnancy; M25.519 Pain in unspecified shoulder
CPT/HCPCS: 59025; 59050; 99221; G0378

== ENCOUNTER 2024-04-14 15:54 | Emergency (ER) | payer OTHER, BC, SELFPAY ==
[2024-04-14 15:55] VITALS: BP 116/77; PULSE 116; RESP 18; TEMP 36.1; O2SAT 99; BMI 30.7
--- NOTE | 2024-04-14 16:15 | RAD_ITS ---
STUDY: X-RAY - RIGHT KNEE REASON FOR EXAM: Female, 28 years old. injury TECHNIQUE: 4 view(s) of the knee. COMPARISON: None. FINDINGS: Normal visualized distal femur. Normal visualized proximal tibia and fibula. Normal proximal tibiofibular articulation. Normal medial femorotibial compartment. Normal lateral femorotibial compartment. Normal patellofemoral articulation. The soft tissue structures are unremarkable. RAD/Knee 4 or More Views IMPRESSION: Normal x-ray examination of the knee. Electronically Signed: Hussain Desouza MD at 16:47 EDT Reading Location ID and State: [facility] / [place] Tel , Service support ,
--- NOTE | 2024-04-14 16:15 | RAD_ITS ---
STUDY: X-RAY - RIGHT ELBOW REASON FOR EXAM: Female, 28 years old. injury TECHNIQUE: 3 view(s) of the elbow. COMPARISON: None. FINDINGS: Normal visualized humerus, and ulna. Acute hairline intra-articular fracture of the radial head. Normal radiocapitellar and ulnotrochlear articulations. The soft tissue structures are unremarkable. RAD/Elbow min 3 Views IMPRESSION: Acute intra-articular hairline fracture of the radial head Electronically Signed: Hussain Desouza MD at 16:46 EDT ,
--- NOTE | 2024-04-14 16:15 | RAD_ITS ---
STUDY: X-RAY - LEFT WRIST REASON FOR EXAM: Female, 28 years old. injury TECHNIQUE: 4 view(s) of the wrist were obtained. COMPARISON: None. FINDINGS: Normal visualized distal radius and ulna. Normal radiocarpal articulation. Normal distal radioulnar articulation. Normal carpal bones. Normal carpal articulations. Normal carpometacarpal articulation of the thumb. Normal second through fifth carpometacarpal articulations. Normal visualized metacarpal bones. The soft tissue structures are unremarkable. RAD/Wrist min 3 Views IMPRESSION: Normal x-ray examination of the wrist. Electronically Signed: Hussain Desouza MD at 16:48 EDT ,
--- NOTE | 2024-04-14 16:16 | EX.ED.GENINJ ---
HPI History of Present Illness Chief Complaint: Fall Informant: patient Narrative Narrative: 28-year-old female presenting to the emergency room following a fall. Patient states she is about 31 weeks . She was at work today at [employer] when she stepped backwards to avoid a tow motor that was coming by. She states that through the years she has had intermittent episodes where her right knee dislocates by this she states that it becomes wobbly and causes her to fall. She fell onto her right side causing pain to the right elbow and pain and swelling to the left wrist. She also notes pain in the knee. She is approximately 31 weeks went to OB triage where the baby was monitored and she was sent to the emergency department following monitoring for evaluation of her other injuries. In questioning her further about the knee I feel that she is describing more of patellar instability as she states that it seemed to move the left and then back to the right causing it to buckle. PFSH PFSH Home Medications ?Medication ?Instructions ?Recorded ?Last Taken ?Type aspirin 81 mg tablet,delayed 81 mg PO DAILY 04/14/24 04/13/24 21:00 History release ([place] Aspirin) 81 mg vits no.130-ferrous fum 1 tab PO DAILY 04/14/24 04/13/24 21:00 History 27 mg iron-folic acid 800 mcg 1 TAB tablet ( Vitamin) Allergy/AdvReac Type Severity Reaction Status Date / Time No Known Allergies Allergy Verified 04/14/24 15:55 Family History Grandmother Breast cancer Social History Smoking Status: Former smoker alcohol intake: never substance use type: does not use ROS ROS ED Constitutional Constitutional ED: Denies chills, fever(s) or weight loss Eyes Eyes: Denies change in vision or diplopia ENT ENT ED: Denies ear pain, rhinorrhea or sore throat Cardiovascular Cardiovascular: Denies chest pain, orthopnea, palpitations or racing heartbeat Respiratory/Chest Respiratory/Chest: Denies cough, dyspnea or orthopnea Gastrointestinal Gastrointestinal: Denies abdominal pain, diarrhea, nausea or vomiting Genitourinary Genitourinary ED: Denies dysuria, hematuria or urinary frequency Musculoskeletal Musculoskeletal: Reports other Details: See history of present illness ; Denies arthralgias, back pain, myalgias or neck pain Integumentary Denies abscess or rash Neurologic Neurologic: Denies headache(s) or weakness Psychiatric Psychiatric: Denies anxiety, depression, suicidal ideation or suicidal thoughts Endocrine Endocrinology: Denies polydipsia, polyphagia or polyuria Allergic/Immunologic Allergic/Immunologic ED: Denies mouth swelling, tongue swelling or urticaria EXAM Physical Exam Const Vital Signs: 04/14/24 15:55 04/14/24 16:46 04/14/24 17:50 Temperature 97 F L 98.2 F Temperature Source Temporal Pulse Rate 116 H 92 Respiratory Rate 18 18 Respiratory Effort Normal Blood Pressure 116/77 129/81 H Blood Pressure Mean 90 97 Pulse Ox 99 98 Oxygen Delivery Method Room Air Positive well nourished and well developed General Appearance ED: well developed HEENT Reports normocephalic, head/scalp atraumatic and moist mucous membranes Eyes PERRL and EOMs intact bilaterally Neck no lymphadenopathy, supple and no JVD Resp normal respiratory effort and clear to auscultation bilaterally Cardio regular rate, regular rhythm and no murmurs Rate: tachycardic GI normal to inspection, nondistended, normoactive bowel sounds and non-tender Palpation: soft Back/Spine no CVA tenderness and normal ROM Extremity Extremity Narrative: Patient has some mild swelling of the right patellar region. There is tenderness over the medial aspect and over the medial underside is a slight the patella [id number] in the groove. There is no joint effusion. No ecchymosis. Extensor mechanism is intact Right elbow shows tenderness to palpation generalized. No significant swelling. Full range of motion. Right wrist demonstrates swelling and tenderness just medial to the anatomic snuffbox. Neurovascular intact. General Extremety ED: Negative for edema General Extremity: Negative for edema Neuro oriented x3 and CN's II-XII intact bilaterally Sensorium / Orientation: alert Motor Exam: strength 5/5 throughout Psych mental status grossly normal Mood & Affect: tearful; Negative for depressed Skin no rashes or lesions noted and no wounds MDM MDM MDM Narrative Medical decision making narrative: Differential diagnosis includes but not limited to fracture sprain strain patellar instability patellar dislocation knee dislocation wrist dislocation contusion. My independent interpretation of the plain films of the right knee is no acute fracture. No significant effusion noted. My independent interpretation of the plain films of the left wrist is no acute fracture. My independent interpretation of the plain films of the right elbow is a acute radial head fracture. Patient will be treated with a wrist splint for the left wrist sprain. A sling for the left radial head fracture Juan Francisco wrap for the right knee. She will follow-up with orthopedics and Workmen's Comp. She will also follow-up with obstetrics as previously directed. History & Record Review Discussion w/independent historian: Patient Radiography Diagnostic Testing: Clinical Impression(s) from Imaging Studies Elbow X-Ray 04/14/24 16:15 IMPRESSION: Acute intra-articular hairline fracture of the radial head Electronically Signed: Hussain Desouza MD at 16:46 EDT , Knee X-Ray 04/14/24 16:15 IMPRESSION: Normal x-ray examination of the knee. Electronically Signed: Hussain Desouza MD at 16:47 EDT , Wrist X-Ray 04/14/24 16:15 IMPRESSION: Normal x-ray examination of the wrist. Electronically Signed: Hussain Desouza MD at 16:48 EDT , Discharge Plan Triage Chief Complaint: Fall ED Provider: Cooper Gonzales Dx/Rx/DC Orders Clinical Impression: Fall, Third trimester , Closed fracture of head of right radius, Left wrist sprain, Right knee sprain Instructions: ED Radial Head Fracture, ED Knee Sprain, ED Wrist Sprain Prescriptions: No Action aspirin [[place] Aspirin] 81 mg tablet,delayed release (DR/EC) 81 mg PO DAILY Vitamin 27 mg iron- 800 mcg tablet 1 tab PO DAILY Primary Care Provider: Care Physician,No Primary Referrals: Amrik Quigley DO [Med Staff - Active Staff] - As soon as possible (For orthopedics) Care Physician,No Primary [Primary Care Provider] - Clinic,[facility] [Non-Staff] - As soon as possible Print Language: Bahraini Disposition Disposition: Home, Self Care Discharge Date/Time: 04/14/24 17:51
--- NOTE | 2024-04-14 16:18 | ED.RN ---
PER JOSETTE ADRIAN, PT. DOES NOT NEED DRUG OR ALCOHOL TESTING FOR WORKMANS COMP.
[2024-04-14] MEDS: Acetaminophen 500 MG Tablet 1000 MG PO (16:31)
[2024-04-14 17:50] VITALS: BP 129/81; PULSE 92; RESP 18; TEMP 36.8; O2SAT 98
== END 2024-04-14 17:51 | disposition home or self-care (01) ==
PROVIDERS: Emergency Provider Emergency Medicine; Visit Provider Emergency Medicine
DX: O9A.213 Injury, poisoning and certain other consequences of external causes complicating pregnancy, third trimester (principal); S52.91XA Unspecified fracture of right forearm, initial encounter for closed fracture; S63.502A Unspecified sprain of left wrist, initial encounter; S83.91XA Sprain of unspecified site of right knee, initial encounter; Z3A.31 31 weeks gestation of pregnancy; Z87.891 Personal history of nicotine dependence; X58.XXXA Exposure to other specified factors, initial encounter
CPT/HCPCS: 73080; 73110; 73564; 99283

== ENCOUNTER 2024-05-29 11:49 | Inpatient (IN) | payer BC, SELFPAY ==
[2024-05-29] VITALS (45 sets, daily range): BP systolic 104–139; BP diastolic 58–80; PULSE 81–229; RESP 14–18; TEMP 35.8–38; O2SAT 65–100; BMI 31.6
[2024-05-29] MEDS: Lactated Ringers 1,000 ML 999 ML IV (12:05)
[2024-05-29 12:14] LABS: Absolute Lymphocyte Count 2.83 X10^3/uL (0.83-4.51); Absolute Neutrophil Count 12.2 X10^3/uL (2.0-7.7); Basophil# 0.09 X10^3/uL; Basophil% 0.5 % (0-1); Eosinophil# 0.02 X10^3/uL; Eosinophils% 0.1 % (0-5); Hematocrit 35.7 % (37-47); Hemoglobin 12.8 g/dL (12.0-15.0); Lymphocyte # 2.83 X10^3/ul (0.83-4.51); Lymphocyte % 17.2 % (19-41); Mean Corp Hgb Conc 35.9 g/dL (32-36); Mean Corpuscular Hgb 30.6 pg (27.0-32.0); Mean Corpuscular Volume 85.4 fL (81-99); Mean Platelet Vol. 10.5 fl (6.2-12.0); Monocyte# 0.91 X10^3/uL; Monocyte% 5.5 % (0-10); NRBC Flagged by Analyzer 0 % (0-5); Neutrophil # 12.22 X10^3/uL (2.7-7.7); Neutrophil % 74.2 % (47-70); Platelet Count 513 K/mm3 (150-450); RBC Distribution Width CV 13.2 % (11.6-14.6); RBC Distribution Width SD 40.4 fl (35.1-43.9); Red Blood Count 4.18 M/mm3 (4.2-5.4); White Blood Count 16.5 K/mm3 (4.4-11.0)
--- NOTE | 2024-05-29 12:19 | PCM.HP.OB ---
HPI - General General Date of Admission: 05/29/24 Date of Service: 05/29/24 Chief Complaint: LAbor HPI Narrative MARTHA DEL VALLE, is a 28 F who presents in active labor at 5 cm with frequent contractions. Membranes intact. GBS negative Maternal Data Information Final ELENA: 06/12/24 Gestational age: 38 PFSH PFSH Home Medications ?Medication ?Instructions ?Recorded ?Last Taken ?Type aspirin 81 mg tablet,delayed 81 mg PO DAILY 04/14/24 05/28/24 History release ([place] Aspirin) vits no.130-ferrous fum 1 tab PO DAILY 04/14/24 05/28/24 History 27 mg iron-folic acid 800 mcg tablet ( Vitamin) Allergy/AdvReac Type Severity Reaction Status Date / Time No Known Allergies Allergy Verified 05/29/24 11:43 Family History Grandmother Breast cancer Social History Smoking Status: Former smoker alcohol intake: never substance use type: does not use History 1 Elective abortions Hx Para 0 Spontaneous abortions Hx # Term Pregnancies Ectopic pregnancies Hx # Pregnancies Multiple births # of living children NST FHR Rate Baby A Baseline: 140 Variability:: Moderate Accelerations:: 15 x 15 Decelerations:: None NST Reactive:: Yes FHR Category:: Category I Uterine Activity:: q 3 ROS Constitutional Constitutional: Denies fatigue, fever(s) or malaise Eyes Eyes: Denies change in vision ENT HEENT: Denies dizziness or headache(s) Cardiovascular Cardiovascular: Denies chest pain, dyspnea or lightheadedness Respiratory/Chest Respiratory/Chest: Denies cough or dyspnea Gastrointestinal Gastrointestinal: Denies change in bowel habits Genitourinary Genitourinary: Denies burning urination or genital lesions Integumentary Integumentary: Denies rash Neurologic Neurologic: Denies confusion, dizziness, headache(s), numbness or weakness Vital Signs Vital Signs Vital Signs: 05/29/24 12:06 05/29/24 12:06 05/29/24 12:06 Temperature Temperature Source Temporal Pulse Rate 96 Respiratory Rate 16 Blood Pressure BP Systolic BP Diastolic Pulse Ox 05/29/24 12:06 05/29/24 12:06 05/29/24 12:07 Temperature 98.9 F Temperature Source Pulse Rate Respiratory Rate Blood Pressure 131/80 H BP Systolic 131 BP Diastolic 80 Pulse Ox 99 05/29/24 12:07 Temperature Temperature Source Pulse Rate 93 Respiratory Rate Blood Pressure BP Systolic BP Diastolic Pulse Ox Weight Weight: 76 kg Body Mass Index (BMI) 31.6 Physical Exam Const alert and no apparent distress General Appearance: cooperative HEENT normocephalic Resp normal respiratory effort GI soft to palpation GI Narrative: gravid, nontender, appropriate for gestational age Extremity no calf tenderness General Extremity: edema Skin no wounds Rashes: No rashes noted Psych activity/motor behavior normal Labs Labs Labs: Antibody Screen Pending Hct 35.7 % (37-47) L Hgb 12.8 g/dL (12.0-15.0) Syphilis Total Ab Pending Assessment & Plan (1) 38 weeks gestation of : (2) Active labor at term: PLAN: Plan Admit for labor GBS negative Epidural prn AROM/ augmentation if needed.
[2024-05-29] MEDS: fentaNYL-bupivacaine (epidural) 100 ML BAG EPIDURAL ×2 (12:42→16:25)
[2024-05-29 12:52] LABS: Syphilis Antibodies Non-reactive
[2024-05-29] MEDS: Lactated Ringers 1,000 ML 200 ML IV ×2 (13:07→18:23)
--- NOTE | 2024-05-29 14:54 | PCM.PN.OB ---
Subjective Subjective AROM clear fluid. 6-7 cm very thin. CAT 1 tracing. Q 2 contractions. Epidural working well. No pitocin Objective Data Objective Data Vital Signs: Vital Signs Temp Pulse Resp BP Pulse Ox 96.4 F L 97 16 137/75 H 65 05/29/24 13:47 05/29/24 13:49 05/29/24 13:47 05/29/24 13:49 05/29/24 13:48 Weight: 76 kg Body Mass Index (BMI) 31.6 Intake & Output: Intake and Output for Last 24 Hours 05/27/24 05/28/24 05/29/24 23:59 23:59 23:59 Intake Total 1000 / 1000 Balance 1000 / 1000 Lab / Micro Data 05/29/24 12:05 Labs: Laboratory Results - last 24 hr 05/29/24 12:05: WBC 16.5 H, RBC 4.18 L, Hgb 12.8, Hct 35.7 L, MCV 85.4, MCH 30.6, MCHC 35.9, RDW Std Deviation 40.4, RDW Coeff of Mitra 13.2, Plt Count 513 H, MPV 10.5, Immature Gran % (Auto) 2.500 H, Neut % (Auto) 74.2 H, Lymph % (Auto) 17.2 L, [place] % (Auto) 5.5, Eos % (Auto) 0.1, Baso % (Auto) 0.5, Absolute Neuts (auto) 12.2 H, Absolute Lymphs (auto) 2.83, Nucleated RBC % 0, Syphilis Total Ab Non-reactive, Blood Type A POSITIVE, Antibody Screen NEGATIVE
[2024-05-29 15:25] LABS: Amphetamine Urine VISTA NEGATIVE (<1000 ng/mL); Barbiturate Urine VISTA NEGATIVE (< 200 ng/mL); Benzodiazepine Urine VISTA NEGATIVE (< 200 ng/mL); Cocaine Urine VISTA NEGATIVE (< 300 ng/mL); Ecstacy Urine VISTA NEGATIVE (< 500 ng/mL); Methadone Urine VISTA NEGATIVE (< 300 ng/mL); PCP Urine VISTA NEGATIVE (< 25 ng/mL); THC Urine VISTA NEGATIVE (< 50 ng/mL); Vista UDS pH Range 5
[2024-05-29] MEDS: LACTATED RINGERS 500 ML 999 ML IV ×2 (15:29→19:55)
[2024-05-29] MEDS: Ondansetron 4 MG/2 ML Vial IV (17:58)
[2024-05-29] MEDS: Acetaminophen 500 MG Tablet PO (19:04)
[2024-05-29] MEDS: Oxytocin 15 Units/NS 250ml 15 UNITS/250 ML IV.SOLN 334 UNITS IV (21:13)
--- NOTE | 2024-05-29 21:23 | EX.PCM.OBRPT ---
Assessment & Plan (1) (spontaneous vaginal delivery): Maternal Data Information Final ELENA: 06/12/24 Gestational age: 38 Vaginal Delivery Maternal Presentation Maternal Presentation: Active Labor Type of Induction: Amniotomy Operative Information Date of Procedure: 05/29/24 Pre-Operative Diagnosis: Term Post-Operative Diagnosis: Same Surgery / Procedure Performed: Spontaneous Vaginal Delivery Type of Anesthesia: Epidural Drain: Willard to straight drain Estimated Blood Loss: 150 cc Time of Delivery: 21:10 Findings Description of Procedure: Patient presented in active labor and progressed to complete after amniotomy. She pushed for 3 hours delivering STARR. CAN x1 easily reduced. The shoulders delivered without difficulty. There was terminal meconium. The cord was cut and clamped. The placenta was delivered with gentle traction. There were no lacerations Presentation: Vertex and STARR Amniotic Membrane Rupture Type: Artificial Amniotic Fluid Description: Clear Placental Delivery Description: Spontaneous Placenta Disposition: [facility] Cord Vessel Description: 3 Vessels Cord Entanglement: Around neck x 1, loose Nuchal Cord Compression: Without compression Infant A Gender: Male (1 minute): 7 (5 minute): 9 Delayed Cord Clamping: Yes Post Vaginal Delivery Medications Given After Delivery: IV Pitocin Episiotomy Description: None Laceration: None Complication Complications: None
[2024-05-29] MEDS: Oxytocin 15 Units/NS 250ml 15 UNITS/250 ML IV.SOLN 83 UNITS IV (21:58)
[2024-05-30 04:30] VITALS: BP 119/84; PULSE 89; RESP 16; TEMP 37; O2SAT 98
[2024-05-30] MEDS: Acetaminophen 500 MG Tablet 1000 MG PO ×2 (07:37→15:31)
[2024-05-30 07:55] VITALS: BP 106/72; PULSE 83; RESP 16; TEMP 36.8; O2SAT 97
--- NOTE | 2024-05-30 08:46 | PCM.PN.OB ---
Subjective Subjective Doing well. Pain controlled. Ambulating and voiding without difficulty. Objective Data Objective Data Vital Signs: Vital Signs Temp Pulse Resp BP Pulse Ox O2 Del Method 98.3 F 83 16 106/72 97 Room Air 05/30/24 07:55 05/30/24 07:55 05/30/24 07:55 05/30/24 07:55 05/30/24 07:55 05/30/24 07:55 Oxygen Delivery Method Room Air Weight: 76 kg Body Mass Index (BMI) 31.6 Intake & Output: Intake and Output for Last 24 Hours 05/28/24 05/29/24 05/30/24 23:59 23:59 23:59 Intake Total 3766.67 / 3766.67 250 / 250 Output Total 950 / 950 950 / 950 Balance 2816.67 / 2816.67 -700 / -700 Lab / Micro Data 05/29/24 12:05 Labs: Laboratory Results - last 24 hr 05/29/24 12:05: WBC 16.5 H, RBC 4.18 L, Hgb 12.8, Hct 35.7 L, MCV 85.4, MCH 30.6, MCHC 35.9, RDW Std Deviation 40.4, RDW Coeff of Mitra 13.2, Plt Count 513 H, MPV 10.5, Immature Gran % (Auto) 2.500 H, Neut % (Auto) 74.2 H, Lymph % (Auto) 17.2 L, [place] % (Auto) 5.5, Eos % (Auto) 0.1, Baso % (Auto) 0.5, Absolute Neuts (auto) 12.2 H, Absolute Lymphs (auto) 2.83, Nucleated RBC % 0, Syphilis Total Ab Non-reactive, Blood Type A POSITIVE, Antibody Screen NEGATIVE 05/29/24 14:45: Urine Opiates Screen NEGATIVE, Urine Methadone Screen NEGATIVE, Ur Barbiturates Screen NEGATIVE, Ur Phencyclidine Scrn NEGATIVE, Ur Amphetamines Screen NEGATIVE, MDMA (Ecstasy) Screen NEGATIVE, U Benzodiazepines Scrn NEGATIVE, Urine Cocaine Screen NEGATIVE, U Cannabinoids Screen NEGATIVE, Ur Drug Screen Comment ROS Constitutional Constitutional: Denies fatigue, fever(s) or malaise Eyes Eyes: Denies change in vision ENT HEENT: Denies dizziness or headache(s) Cardiovascular Cardiovascular: Denies chest pain, dyspnea or lightheadedness Respiratory/Chest Respiratory/Chest: Denies cough or dyspnea Gastrointestinal Gastrointestinal: Denies change in bowel habits Genitourinary Genitourinary: Denies burning urination or genital lesions Integumentary Integumentary: Denies rash Neurologic Neurologic: Denies confusion, dizziness, headache(s), numbness or weakness Physical Exam Const alert and no apparent distress Narrative: Fundus firm, below umbilicus. Assessment & Plan (1) (spontaneous vaginal delivery):
[2024-05-30] MEDS: Ibuprofen 600 MG Tablet PO ×2 (10:42→21:21)
[2024-05-30 12:35] VITALS: BP 119/90; PULSE 89; RESP 16; TEMP 36.9; O2SAT 98
--- NOTE | 2024-05-30 13:45 | CASEMGMT ---
Social Work Assessment Labor and Delivery Unit Patient Address: [address] [place] [id number] Phone number: Date of Referral: 05/30/24 Time of Referral: 06:42 Referred By: Tracie Kee Date of Intervention: 05/30/24 Time of Intervention: 13:44 Reason for Referral: THC in History obtained from: Medical records and mother of baby (MOB) Tracy Gonzalez. ? Household composition: MOB, father of baby (FOB) Goyo Gonzalez and baby boy Marybeth. Patient's parent/guardian status: MOB and FOB are and both will be providing care to the baby. MOB reported she and her have been together for 13 years. Medical History: MOB has had one and one . MOB reported she received routine care through [facility]. Baby?s birthweight was 5 lbs., 12 oz.? Apgars were 7 and 9. Educational Status: MOB denied any issues or concerns with reading or writing. MOB reported both she and her earned their High School diplomas. Financial Status: MOB reported the household income is sufficient to meet the needs of her family at this time. 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 MOB reported she gets 15 weeks off for maternity leave and her gets 6 weeks of paternity leave. Infant Supplies: MICAH reported she has all of the supplies she needs for baby at this time including but not limited to: Car Seat, 2 bassinets, crib, diapers, bottles, 2 breast pumps and clothing. Childcare/Caregiver(s): MOB reported her mother will be the primary caregiver for baby once she returns to work. ? Transportation:? MOB reported she and her are licensed drivers with a reliable vehicle to take baby to and from all medical appointments. No transportation issues identified. Programs/Agencies Involved: MOB denied any current programs or agencies involved at this time. ??? Children Services/Legal Issues:? Denied. Behavioral Health Issues: ??Mental Health History: Denied.? Substance Use History: MOB: Marijuana. ??Family History: Not reported. ?Drug Screens: Negative Family/Social Stressors:? Denied. Support Systems: Ample. MOB identified her and her mother as her primary support system.? MOB reported PGP?s are . ?? Depression/Shaken Baby/Safe Sleeping: scruff worker provided verbal and written education on PPD, Safe Sleeping and Shaken Baby.? MOB verbalized an understanding. ??? ASSESSMENT:? MOB provided consent to social work visit. MOB?s family was leaving as social work msw arrived. During the visit, MICAH was holding her son and appeared to be very attached and bonded.? MOB looked at baby often, was very comforting and attentive.? MOB reported she wants the best for her baby.? MOB reported she hasn?t gotten established with a travel ticketing reviewer yet however is looking at possibly [facility] in [place].? MOB admitted that she smoked tobacco during her and in the beginning would smoke roughly 10 cigarettes a day however started tapering off until she was eventually able to quit.? MOB wasn?t able to identify the last time she had tobacco use.? MOB also reported smoking marijuana during . MOB reported it helped with nausea and also helped her sleep.? MOB reported the last date of use was roughly a month ago (April). MOB reported she?s not planning on smoking marijuana again. Safe Plan of Care for related to substance use: Clinical Medical Transcriptionist making referral to [facility]. MOB denied using marijuana for the past month and tested negative on her tox screen. MOB reported she is not going to continue her marijuana use. Clinical Medical Transcriptionist provided education. ? PLAN:? Baby to be discharged home.? scruff worker also provided written information on depression, depression resources and Help Me Grow. ?No other services requested or indicated. Per protocol, scruff worker [facility] to MOB smoking marijuana during . Tracie Moran, ORE GRADER, BEAUTY SPECIALIST
[2024-05-30 15:57] VITALS: BP 119/89; PULSE 72; RESP 16; TEMP 36.4; O2SAT 99
--- NOTE | 2024-05-30 18:12 | CASEMGMT ---
Social work: die storage worker made a CSB referral to [facility] ([facility]). No referral number. Tracie Moran, GLASS SCULLION, RADIOISOTOPE TECHNICIAN
[2024-05-30 21:25] VITALS: BP 105/78; PULSE 77; RESP 16; TEMP 36.9; O2SAT 97
[2024-05-31 01:59] VITALS: BP 119/83; PULSE 74; RESP 16; TEMP 36.7; O2SAT 96
--- NOTE | 2024-05-31 06:52 | PCM.PN.OB ---
Subjective Subjective Feels good. Pain controlled. Minimal lochia. Bottle feeding. Still trying to pump. Objective Data Objective Data Vital Signs: Vital Signs Temp Pulse Resp BP Pulse Ox O2 Del Method 98.0 F 74 16 119/83 H 96 Room Air 05/31/24 01:59 05/31/24 01:59 05/31/24 01:59 05/31/24 01:59 05/31/24 01:59 05/31/24 01:59 Oxygen Delivery Method Room Air Weight: 76 kg Body Mass Index (BMI) 31.6 Intake & Output: Intake and Output for Last 24 Hours 05/29/24 05/30/24 05/31/24 23:59 23:59 23:59 Intake Total 3766.67 / 3766.67 250 / 250 Output Total 950 / 950 950 / 950 Balance 2816.67 / 2816.67 -700 / -700 Lab / Micro Data 05/29/24 12:05 ROS Constitutional Constitutional: Denies fatigue, fever(s) or malaise Eyes Eyes: Denies change in vision ENT HEENT: Denies dizziness or headache(s) Cardiovascular Cardiovascular: Denies chest pain, dyspnea or lightheadedness Respiratory/Chest Respiratory/Chest: Denies cough or dyspnea Gastrointestinal Gastrointestinal: Denies change in bowel habits Genitourinary Genitourinary: Denies burning urination or genital lesions Integumentary Integumentary: Denies rash Neurologic Neurologic: Denies confusion, dizziness, headache(s), numbness or weakness Physical Exam Const alert and no apparent distress Narrative: Fundus firm, below umbilicus. Assessment & Plan (1) (spontaneous vaginal delivery): PLAN: Plan Discharge home
--- NOTE | 2024-05-31 06:55 | PCM.DC.SUM ---
Providers Date of Admission: 05/29/24 Date of Discharge: 05/31/24 Primary Care Physician: Stephanie Primary Care Phys Reason For Visit: VAGINAL DELIVERY PER [place] IN OB Diagnosis Discharge Diagnosis (1) (spontaneous vaginal delivery): Status: Acute Code(s): O80 - Encounter for full-term uncomplicated delivery Plan Discharge home Medications at Discharge Home Medications vits no.130-ferrous fum 27 mg iron-folic acid 800 mcg tablet ( Vitamin) 1 tab PO DAILY 04/14/24 ibuprofen 600 mg tablet 600 mg PO Q6H PRN PRN Pain Score 1-10 #30 tabs 05/31/24 Hospital Course Operations None Procedures None Summary of Care Provided Minutes Spent on Discharge: 22 Hospital Course: Presented in active labor. Progressed to complete with AROM. Delivered by without complication. No problems Physical Exam Const alert and no apparent distress Narrative: Fundus firm, below umbilicus. Weight / BMI Weight Weight: 76 kg Body Mass Index (BMI) 31.6 ABG / Lab / Microbiology Data 05/29/24 12:05 D/C Instructions May resume sexual activity in: 6 weeks Please Follow Up With: Elin Danielson MD When: Follow up with our office in 1-2 and 6 weeks or as needed. [phone] Meaningful Use Info Meaningful Use Meaningful Use Diagnoses (Choose all that apply): None applicable Ischemic Stroke Statin Dosing Therapy Reference: STATIN DOSE THERAPY REFERENCE: * Patients > 75 years receive moderate or high dose statin therapy. * Patients 75 years or YOUNGER should receive HIGH intensity statin dose unless contraindicated. You will be required to document reason for non-treatment if statin daily dose does not meet guidelines. HIGH DOSE STATIN THERAPY DAILY Atorvastatin > than or = to 40 mg Rosuvastatin > than or = to 20 mg Amlodipine + Atorvastatin > than or = to 2.5/40 mg Ezetimibe + Simvastatin 10/80 mg Simvastatin 80mg Discharge Plan Admission Admit Date/Time: 05/29/24 11:51 Primary Reason for Your Visit: labor Attending Provider: Tracie Kee Primary Care Provider: Care Physician,Stephanie Primary Discharge Orders/Prescriptions Prescriptions: New ibuprofen 600 mg Tablet 600 mg PO Q6H PRN PRN (Reason: Pain Score 1-10) Qty: 30 0RF Continued Vitamin 27 mg iron- 800 mcg tablet 1 tab PO DAILY Discontinued aspirin [[place] Aspirin] 81 mg tablet,delayed release (DR/EC) 81 mg PO DAILY Referrals / Follow Up: Care Physician,No Primary [Primary Care Provider] - Disposition Disposition (needs filled in before D/C Order can be placed): Home, Self Care
[2024-05-31 07:33] VITALS: BP 134/72; PULSE 67; RESP 16; TEMP 36.7
[2024-05-31 09:58] VITALS: BP 134/72; PULSE 67; RESP 16; TEMP 36.7
--- NOTE | 2024-05-31 16:24 | CASEMGMT ---
Social Work Case by [facility] Tracie Moran was screened in by [facility]. Michelet Zaldivar ([phone]) is the assigned worker. Confirmed mother of baby's phone number and family's discharge date. Children services to follow up with family in the community. No other services requested or indicated. -CHAN Díaz
== END 2024-05-31 11:36 | disposition home or self-care (01) | DRG 807 ==
LOC: WPOUT 06-01 09:43 → WP 06-01 09:43
PROVIDERS: Admitting Provider Obstetrics & Gynecology; Referring Provider Obstetrics & Gynecology; Visit Provider Obstetrics & Gynecology
DX: O69.81X0 Labor and delivery complicated by cord around neck, without compression, not applicable or unspecified (principal); Z37.0 Single live birth; O77.0 Labor and delivery complicated by meconium in amniotic fluid; Z3A.38 38 weeks gestation of pregnancy; Z79.82 Long term (current) use of aspirin; Z87.891 Personal history of nicotine dependence
CPT/HCPCS: 59025; 59050; 80307; 85025; 86780; 86850; 86900; 86901; 99221; J7120; G0378; J2405